=== PATIENT | female | born 1975 | race Caucasian/White ===

== ENCOUNTER → 2020-11-13 17:59 | Outpatient (CLI) | payer OTHER, SELFPAY ==
--- NOTE | ~2020-11-13 | XR_ITS ---
XR foot RT min 3V 11/13/2020 19:11 Indication: Right foot pain Procedure: 4 views right foot Comparison: No prior studies for comparison. Findings: There is moderate osteoarthritis of the first MTP joint with surgical changes consistent wi th hallux repair. Lisfranc joint intact. No acute fracture or traumatic malalignment. No focal soft t issue abnormality. No foreign bodies. Impression: 1: No acute bone or joint abnormality. Reviewed, dictated and finalized at location A. Impression: 1: No acute bone or joint abnormality.
== END ==
PROVIDERS: Visit Provider Nurse Practitioner
DX: M79.671 Pain in right foot (principal)
CPT/HCPCS: 73630

== ENCOUNTER 2022-06-26 01:05 | Day surgery (SDC) | payer BC, SELFPAY ==
[2022-06-12 08:58] VITALS: BMI 37.4
--- NOTE | 2022-06-26 08:37 | WPDANESEPPF ---
Anes - Initial Pre Proc Eval Procedure: Operation Date: 06/26/22 10:30 Proposed Procedures p Esophagogastroduodenoscopy & Screening Colonoscopy - Aleksandr Cox MD Date/Time: 06/26/22 08:37 Surgeon: Aleksandr Cox MD Pre Op Diagnosis: GERD, dysphagia; neoplasm screening Patient Data Age: 46 Gender: F Height: 1.57 m Weight: 92.9 kg Allergies Allergy/AdvReac Type Severity Reaction Status Date / Time No Known Allergies Allergy Unverified 06/26/22 09:19 Home Medications Medication Instructions Recorded Confirmed Type estradiol 1 mg tablet 1 mg PO DAILY 12/21/19 06/12/22 History progesterone micronized 100 mg 100 mg PO QAM 12/21/19 06/12/22 History capsule cetirizine 10 mg capsule (Zyrtec) 10 mg PO DAILY PRN Allergy Symptoms 11/13/20 06/12/22 History sucralfate 1 gram tablet (Carafate) 1 g PO TID #90 tabs 04/30/22 06/12/22 Rx rabeprazole 20 mg tablet,delayed 20 mg PO DAILY #30 tabs 05/08/22 06/12/22 Rx release (AcipHex) buspirone 10 mg tablet 10 mg PO BID #180 tabs 06/10/22 06/12/22 Rx fluoxetine 40 mg capsule 40 mg PO DAILY #90 caps 06/10/22 06/12/22 Rx Patient hx anesthesia problems: none Family hx anesthesia problems: none Results Review: All pre-operative results and documents have been reviewed as part of the pre-operative evaluation. [facility] Past Medical History Medical History (Updated 05/08/22 @ 09:13 by Maryann Mendoza, ROBEL) Allergies (~1999) Anxiety (~1999) Asthma (~1999) Atypical chest pain Colon cancer screening GERD (gastroesophageal reflux disease) (~2014) History of vaginal delivery (~2003) Hyperlipidemia Left upper quadrant pain Obesity (BMI 30-39.9) Obesity (BMI 30.0-34.9) Surgical History Surgical History History of bunionectomy (~2016) removal of neuroma, 2017 Family History Family History Father Gastric bleeding Peripheral artery disease with complications leading to left above knee amputation (2013) Malignant neoplasm of prostate Grandparent History of bleeding ulcers Social History Social History Social History: Pt states that she drinks 2 cups of coffee daily. 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[employer] Gender identity (if verbalized by the patient): Female Spiritual care concerns: No Agree to blood products: Yes Anes - Eval Final PreProcedure Day of Procedure 06/26/22 08:37 Patient weight: obese Heart: regular rate and rhythm Lungs: clear to auscultation and normal air movement Airway: Mallampati scale class II Neurological: alert and oriented Last oral intake: >/= 8 hours ASA classification: III Emergent: no Anesthetic plan: proceed Anesthesia type and monitoring: general GIVS Results Review: All pre-operative results and documents have been reviewed as part of the pre-operative evaluation. Informed Consent: The patient's anesthetic plan and its attendant risks and benefits were discussed with the patient/family/POA. Questions were solicited and answers provided to the satisfaction of the patient/family/POA.
[2022-06-26 09:21] VITALS: BP 130/77; PULSE 67; RESP 18; TEMP 36.2; O2SAT 98; BMI 37.4
[2022-06-26] MEDS: LACTATED RINGERS 1,000 ML 150 ML IV CONT (09:26)
--- NOTE | 2022-06-26 10:17 | PM.HPGS ---
History of Present Illness History of Present Illness Consent: Risks, benefits, and alternatives have been discussed and questions answered. Patient agrees to proceed with procedure. Chief complaint: GERD, dysphagia; neoplasm screening Narrative: Vania Isaacs is a 46 year old female with gerd and intermittent pain in luq, better with rabeprazole. Never had scopes. Review of Systems Constitutional: Constitutional: Denies headache(s) and Denies weakness Eyes: Eyes: Denies blurry vision ENT: Reports Normal hearing present, Denies headache(s) and Denies neck pain Cardiovascular: Cardiovascular: Denies chest pain and Denies dyspnea Respiratory: Respiratory: Denies dyspnea Gastrointestinal: Gastrointestinal: Reports no additional gastrointestinal complaints Genitourinary: Genitourinary: Denies dysuria Musculoskeletal: Musculoskeletal: Denies neck pain Integumentary/Breasts: Skin/Breast: Denies dry skin Neurologic: Reports Normal hearing present, Denies headache(s) and Denies weakness Psychiatric: Psychiatric: Denies anxiety Endocrine: Endocrine: Denies change in body appearance Hematologic/Lymphatic: Hematologic/Lymphatic: Denies easy bleeding Allergic/Immunologic: Allergic/Immunologic: Denies urticaria [facility] Past Medical History Medical History (Updated 05/08/22 @ 09:13 by Maryann Mendoza, ROBEL) Allergies (~1999) Anxiety (~1999) Asthma (~1999) Atypical chest pain Colon cancer screening GERD (gastroesophageal reflux disease) (~2014) History of vaginal delivery (~2003) Hyperlipidemia Left upper quadrant pain Obesity (BMI 30-39.9) Obesity (BMI 30.0-34.9) Surgical History Surgical History History of bunionectomy (~2016) removal of neuroma, 2017 Family History Family History Father Gastric bleeding Peripheral artery disease with complications leading to left above knee amputation (2013) Malignant neoplasm of prostate Grandparent History of bleeding ulcers Social History Social History Social History: Pt states that she drinks 2 cups of coffee daily. 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[employer] Gender identity (if verbalized by the patient): Female Spiritual care concerns: No Agree to blood products: Yes Meds Home Medications and Allergies Home Medications Medication Instructions Recorded Confirmed Type estradiol 1 mg tablet 1 mg PO DAILY 12/21/19 06/12/22 History progesterone micronized 100 mg 100 mg PO QAM 12/21/19 06/12/22 History capsule cetirizine 10 mg capsule (Zyrtec) 10 mg PO DAILY PRN Allergy Symptoms 11/13/20 06/12/22 History sucralfate 1 gram tablet (Carafate) 1 g PO TID #90 tabs 04/30/22 06/12/22 Rx rabeprazole 20 mg tablet,delayed 20 mg PO DAILY #30 tabs 05/08/22 06/12/22 Rx release (AcipHex) buspirone 10 mg tablet 10 mg PO BID #180 tabs 06/10/22 06/12/22 Rx fluoxetine 40 mg capsule 40 mg PO DAILY #90 caps 06/10/22 06/12/22 Rx Allergies Allergy/AdvReac Type Severity Reaction Status Date / Time No Known Allergies Allergy Unverified 06/26/22 09:19 Vital Signs Vital Signs - 24 hr 06/26/22 09:21 Temperature 97.2 F L Pulse Rate 67 Respiratory Rate 18 Blood Pressure 130/77 Pulse Oximetry 98 Oxygen Delivery Room Air Exam Const: General: comfortable and no acute distress HENMT: Face/Nose/Sinus: Normal nares present Eyes: General: appearance normal, both eyes and all related structures Neck: Neck: no
--- NOTE | 2022-06-26 10:34 | SUR.OPER ---
EGD: [id number] COLON: [id number]
[2022-06-26 10:50] VITALS: BP 119/73; PULSE 70; RESP 22; O2SAT 99
[2022-06-26 11:00] VITALS: BP 128/83; PULSE 67; RESP 17; O2SAT 100
[2022-06-26 11:10] VITALS: BP 143/77; PULSE 72; RESP 20; O2SAT 99
== END 2022-06-26 11:19 | disposition home or self-care (01) ==
PROVIDERS: PCP Nurse Practitioner; Visit Provider Internal Medicine Gastroenterology
PROC: 0DJ08ZZ Inspection of Upper Intestinal Tract, Via Natural or Artificial Opening Endoscopic (ICD-10-PCS; CPT 43235; principal; 2022-06-26 10:30)
DX: Z12.11 Encounter for screening for malignant neoplasm of colon (principal); D12.3 Benign neoplasm of transverse colon; K64.8 Other hemorrhoids; K31.7 Polyp of stomach and duodenum; K21.9 Gastro-esophageal reflux disease without esophagitis; R10.12 Left upper quadrant pain; F41.9 Anxiety disorder, unspecified; E66.9 Obesity, unspecified; Z68.37 Body mass index [BMI] 37.0-37.9, adult
CPT/HCPCS: 45385; 43239; 88305; J2704; J3010; J7120

== ENCOUNTER 2022-09-02 16:34 | Outpatient (CLI) | payer BC, SELFPAY ==
--- NOTE | ~2022-09-02 | US_ITS ---
Pelvic ultrasound. Clinical History: Postmenopausal bleeding Technique: Realtime transabdominal and transvaginal scanning of the pelvis was performed. Color flow Doppler and Doppler spectral analysis were performed. Findings: The uterus is anteverted, and measures 8.4 x 4.5 x 5.3 cm. The endometrial stripe has a th ickness of 6 mm. No focal mass is identified. The right ovary measures 2.5 x 1.4 x 2.7 cm. No significant right ovarian or adnexal mass is seen. The left ovary measures 3.4 x 1.1 x 2.4 cm. No significant left ovarian or adnexal mass is seen. Vascular flow present in both ovaries on Doppler spectral analysis. There is no evidence of free fluid in the cul de sac. Impression: Endometrial stripe measures 6 mm, upper limits of normal to borderline thickened. Findings are somewh at equivocal. Consider additional workup for endometrial hyperplasia or endometrial neoplasm as indic ated. Reviewed, dictated and finalized at location . FITI CLEANER Impression: Endometrial stripe measures 6 mm, upper limits of normal to borderline thickene d. Findings are somewhat equivocal. Consider additional workup for endometrial hyperplasia or endometrial neoplasm as indicated.
== END 2022-09-02 16:35 | disposition home or self-care (01) ==
PROVIDERS: PCP Nurse Practitioner; Visit Provider Obstetrics & Gynecology
DX: N95.0 Postmenopausal bleeding (principal)
CPT/HCPCS: 76830; 76856

== ENCOUNTER 2022-09-17 09:08 | Emergency (ER) | payer BC, SELFPAY ==
--- NOTE | 2022-09-17 09:10 | ED.URI ---
HPI - URI/Sore Throat General Chief Complaint: Upper Respiratory Infection Stated Complaint: Cough,Congestion,Rt Ear Irritation Time Seen by Provider: 09/17/22 09:09 Source: patient Mode of arrival: ambulatory Limitations: no limitations History of Present Illness HPI Narrative: Sandy is a 47-year-old female patient presenting to the clinic today with complaints of cough, congestion, and right ear pain since . She reports she has been treated with antibiotics, fluticasone/salmeterol inhaler, and a Medrol Dosepak. Reports that she feels as though her symptoms are getting worse. She has also been taking some Mucinex. She is bringing up very little phlegm and it has been clear. She denies any fever or chills. She reports she does have some shortness of breath with coughing. States that her sinus pressure has improved. MD elicited complaint: cough, nasal congestion and other (Right ear pain) Related Data Home Medications Medication Instructions Recorded Confirmed progesterone micronized 100 mg 100 mg PO QAM 12/21/19 09/17/22 capsule cetirizine 10 mg capsule (Zyrtec) 10 mg PO DAILY PRN Allergy Symptoms 11/13/20 09/17/22 Allergies Allergy/AdvReac Type Severity Reaction Status Date / Time No Known Allergies Allergy Verified 09/17/22 09:17 Review of Systems Review of Systems: Pertinent positives per HPI. Patient denies any fever, chills, rash, headache, visual changes, dizziness, shortness of breath, chest pain, palpitations, nausea, vomiting, diarrhea, constipation, abdominal pain, or any urinary issues. [facility] Past Medical History Medical History Allergies (~1999) Anxiety (~1999) Asthma (~1999) Atypical chest pain Colon cancer screening GERD (gastroesophageal reflux disease) (~2014) History of vaginal delivery (~2003) Hyperlipidemia Left upper quadrant pain Obesity (BMI 30-39.9) Obesity (BMI 30.0-34.9) Surgical History Surgical History History of bunionectomy (~2016) removal of neuroma, 2017 Family History Family History Father Gastric bleeding Peripheral artery disease with complications leading to left above knee amputation (2013) Malignant neoplasm of prostate Grandparent History of bleeding ulcers Social History Social History Social History: Pt states that she drinks 2 cups of coffee daily. Smoking status: Never smoker Second hand tobacco smoke exposure: No Alcohol intake: current Drinks per week: 2 Alcohol use details: drinks wine 1/occ Substance use: never Substance use type: does not use Lack of Transportation: No Lack of Food: Never True Current Housing: I Have Housing Concerned About Future Housing: No Difficulty Paying Gas/Electric Bills: No Difficulty Paying for Meds: No Currently Unemployed: No Education: Master's Degree or Higher Difficulty w/ Childcare or Family Care: No Living arrangements: with family Additional living arrangements comments: since 2011; 2013 Occupation/Education: occupation 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 There is no relevant family history pertinent to the patient complaint. Exam Narrative: General: Well-developed, well nourished, in no apparent distress Head: Normocephalic, atraumatic Eyes: Pupils equally round and reactive to light bilaterally, EOM intact, sclera and conjunctive clear, no discharge, lids normal Ears: Left tMs intact and nitish
[2022-09-17 09:17] VITALS: BP 148/76; PULSE 86; RESP 18; TEMP 36.4; O2SAT 97
[2022-09-17 09:30] VITALS: O2SAT 97
[2022-09-17] MEDS: IPRATROPIUM BR 0.02% INH SOLN 0.5 MG/2.5 ML VIAL INHALATION (09:30)
[2022-09-17] MEDS: ALBUTEROL SULFATE NEB 2.5 MG/3 ML INH INHALATION (09:31)
[2022-09-17 09:50] VITALS: PULSE 84; O2SAT 98
== END 2022-09-17 09:52 | disposition home or self-care (01) ==
PROVIDERS: Emergency Provider Nurse Practitioner Family; PCP Nurse Practitioner
DX: J40 Bronchitis, not specified as acute or chronic (principal); H65.04 Acute serous otitis media, recurrent, right ear; H69.81 Other specified disorders of Eustachian tube, right ear; J45.909 Unspecified asthma, uncomplicated; K21.9 Gastro-esophageal reflux disease without esophagitis; E78.5 Hyperlipidemia, unspecified; E66.9 Obesity, unspecified; Z68.39 Body mass index [BMI] 39.0-39.9, adult
CPT/HCPCS: 94640; 99213; G0463

== ENCOUNTER → 2022-09-23 13:35 | Outpatient (CLI) | payer BC, SELFPAY ==
--- NOTE | ~2022-09-23 | XR_ITS ---
Clinical Indication: Cough PA and lateral views of the chest: Comparison: None Findings: The lungs are clear, without evidence of focal consolidation or pleural effusion. Cardiome diastinal silhouette is within normal limits. Bones and soft tissues are unremarkable. Impression: Normal chest. Reviewed, dictated and finalized at [facility]. VISUAL DESIGNER Impression: Normal chest.
== END ==
PROVIDERS: PCP Nurse Practitioner; Visit Provider Nurse Practitioner
DX: R05.9 Cough, unspecified (principal)
CPT/HCPCS: 71046

== ENCOUNTER 2022-10-08 14:22 | Outpatient (CLI) | payer BC, SELFPAY ==
--- NOTE | 2022-10-08 17:47 | WPDPFTINT ---
PFT Procedure Performed PFT Procedure Performed Spirometry with Pre/Post Bronchodilator Plethysmography (Lung Vol) Diffusing Cap (DLCO) Flow Vol Loop PFT Interpretation This is a pulmonary function test with pre and post-bronchodilator spirometry, plethysmography and diffusing capacity. The test was performed and results interpreted in accordance with the 2019 and 2005 ATS/ERS Task Force guidelines respectively using the Global Lung Function Initiative-2012 reference equations. Patient demonstrated good effort and cooperation. Reproducibility criteria were met. The quality of the pre bronchodilator spirometry maneuver was Grade B and post bronchodilator spirometry maneuver was Grade A. Of note the patient had a nonproductive cough throughout the entire test. Findings: Spirometry:? The expiratory flow tracing demonstrates a mid expiratory plateau in airflow creating a mild convex inflection referred to as the knee pattern in 2 of 2 pre bronchodilator efforts and is more pronounced in 3 of 3 post bronchodilator efforts. The contour the inspiratory flow tracing was truncated in all efforts.? The pre bronchodilator FVC is 3.70 L, 113% predicted. The pre bronchodilator FEV1 is 2.80 L, 106% predicted. The pre bronchodilator FEV1: FVC ratio is 76%. The post bronchodilator FVC is 3.51 L, representing a 5% decrease. The post bronchodilator FEV1 is 2.83 L, representing a 1% increase. The post bronchodilator FEV1: FVC ratio is 81%. Plethysmography: The total lung capacity is 4.96 L, 105% predicted. The functional residual capacity is 1.74 L, 66% predicted. The residual volume is 0.95 L, 59% predicted. Diffusing capacity: The diffusing capacity unadjusted for hemoglobin and carboxyhemoglobin is 21.1, 95% predicted. The diffusing capacity adjusted for alveolar volume is 4.32, 91% predicted. Impression: The expiratory flow tracing demonstrates a reproducible mid expiratory plateau in airflow creating a convex inflection referred to as the knee pattern and is reproducible in all efforts and is more pronounced in the post bronchodilator efforts.? This pattern can be a normal variant or pathologic and has been attributed to a choke point section of the bronchial tree.? The normal variant is more common in younger female patients, decreases with age and is more pronounced in the post bronchodilator efforts.? The pattern has also been described with kyphosis, kyphoscoliosis, central obstructing masses, and post lung transplantation. Clinical correlation is recommended. Otherwise, the spirometry is normal without evidence of an obstructive abnormality. ? The lung volumes are normal.? The diffusing capacity is normal. There are no prior studies for comparison
== END 2022-10-08 14:23 | disposition home or self-care (01) ==
LOC: ANHPFT 14:23
PROVIDERS: PCP Nurse Practitioner; Visit Provider Nurse Practitioner
DX: R06.02 Shortness of breath (principal); R06.2 Wheezing; R94.2 Abnormal results of pulmonary function studies
CPT/HCPCS: 94060; 94726; 94729

== ENCOUNTER 2022-12-04 09:24 | Outpatient (CLI) | payer BC, SELFPAY ==
--- NOTE | ~2022-12-04 | MM_ITS ---
EXAMINATION: MM screening bebeto BI w [facility] HISTORY: Screening mammogram TECHNIQUE: Craniocaudal and mediolateral oblique 3-D tomosynthesis images were obtained and synthetic 2-D images were generated. CAD analysis was submitted and interpreted. COMPARISON: No prior mammogram is available for comparison at this institution. BREAST PARENCHYMAL COMPOSITION: There are scattered areas of fibroglandular density. FINDINGS: RIGHT BREAST: No suspicious mass, calcification, or architectural distortion are identified to sugges t malignancy. LEFT BREAST: There is a possible mass in the anterior third of the slightly upper breast best appreci ated 5 cm from the nipple on the mediolateral oblique view. IMPRESSION: 1. Possible left breast mass. 2. Additional mammographic views and possible breast ultrasound are recommended. BI-RADS Category 0: Incomplete: Needs additional imaging evaluation. Reviewed, dictated and finalized at location A. IMPRESSION: 1. Possible left breast mass. 2. Additional mammographic views and possible breast ultrasound are recommended . BI-RADS Category 0: Incomplete: Needs additional imaging evaluation.
== END 2022-12-04 09:25 | disposition home or self-care (01) ==
LOC: ANHIMG 09:26
PROVIDERS: PCP Nurse Practitioner; Visit Provider Obstetrics & Gynecology
DX: Z12.31 Encounter for screening mammogram for malignant neoplasm of breast (principal); R92.8 Other abnormal and inconclusive findings on diagnostic imaging of breast
CPT/HCPCS: 77063; 77067

== ENCOUNTER 2023-05-13 12:56 | Outpatient (CLI) | payer BC, SELFPAY ==
--- NOTE | 2023-05-13 14:00 | NEURO_ITS ---
Impression: # Complains of nocturnal paresthesia and pain. # Bilateral Carpal Tunnel Syndrome, left more than right. # No ulnar neuropathy. # Normal needle/EMG. Nerve Conduction Studies Anti Sensory Summary Table Stim Site NR Peak (ms) P-T Amp (?V) Site1 Site2 Delta-P (ms) Dist (cm) Jorje (m/s) Left Median Anti Sensory (2-3nd Digit) Wrist 2.9 99.7 Wrist 2-3nd Digit 2.9 14.0 48 Wrist 2.9 102.2 Wrist 2-3nd Digit 2.9 14.0 48 Right Median Anti Sensory (2-3nd Digit) Wrist 3.1 88.5 Wrist 2-3nd Digit 3.1 14.0 45 Wrist 3.1 75.2 Wrist 2-3nd Digit 3.1 14.0 45 Left Radial Anti Sensory (Base 1st Digit) Wrist 2.0 40.1 Wrist Base 1st Digit 2.0 0.0 Right Radial Anti Sensory (Base 1st Digit) Wrist 1.9 31.4 Wrist Base 1st Digit 1.9 0.0 Left Ulnar Anti Sensory (5th Digit) Wrist 2.3 49.2 Wrist 5th Digit 2.3 14.0 61 Right Ulnar Anti Sensory (5th Digit) Wrist 2.2 54.4 Wrist 5th Digit 2.2 14.0 64 Motor Summary Table Stim Site NR Onset (ms) O-P Amp (mV) Site1 Site2 Delta-0 (ms) Dist (cm) Jorje (m/s) Left Median Motor (Abd Poll Brev) Wrist 4.1 2.4 Elbow Wrist 4.6 28.0 61 Elbow 8.7 3.4 Right Median Motor (Abd Poll Brev) Wrist 3.7 8.1 Elbow Wrist 5.0 29.0 58 Elbow 8.7 3.8 Left Ulnar Motor (Abd Dig Minimi) Wrist 2.0 5.6 A Elbow Wrist 5.3 30.0 57 A Elbow 7.3 5.6 Right Ulnar Motor (Abd Dig Minimi) Wrist 2.2 9.8 A Elbow Wrist 5.1 29.0 57 A Elbow 7.3 7.7 F Wave Studies NR F-Lat (ms) L-R F-Lat (ms) Left Median (Mrkrs) (Abd Poll Brev) 29.53 1.11 Right Median (Mrkrs) (Abd Poll Brev) 28.42 1.11 Left Ulnar (Mrkrs) (Abd Dig Min) 26.99 0.98 Right Ulnar (Mrkrs) (Abd Dig Min) 27.97 0.98 EMG Side Muscle Nerve Root Ins Act Fibs Amp Dur Recrt Comment Right 1stDorInt Ulnar C8-T1 Nml Nml Nml Nml Nml Right Ext Indicis Radial (Post Int) C7-8 Nml Nml Nml Nml Nml Right Ext Digitorum Radial (Post Int) C7-8 Nml Nml Nml Nml Nml Right BrachioRad Radial C5-6 Nml Nml Nml Nml Nml Right PronatorTeres Median C6-7 Nml Nml Nml Nml Nml Right Abd Poll Brev Median C8-T1 Nml Nml Nml Nml Nml Left 1stDorInt Ulnar C8-T1 Nml Nml Nml Nml Nml Left Ext Indicis Radial (Post Int) C7-8 Nml Nml Nml Nml Nml Left Ext Digitorum Radial (Post Int) C7-8 Nml Nml Nml Nml Nml Left BrachioRad Radial C5-6 Nml Nml Nml Nml Nml Left PronatorTeres Median C6-7 Nml Nml Nml Nml Nml Left Abd Poll Brev Median C8-T1 Nml Nml Nml Nml Nml MTDD
== END 2023-05-13 12:57 | disposition home or self-care (01) ==
LOC: ANHNEURO 12:57
PROVIDERS: PCP Family Medicine; Visit Provider Nurse Practitioner Family
DX: R20.2 Paresthesia of skin (principal); G56.03 Carpal tunnel syndrome, bilateral upper limbs
CPT/HCPCS: 95886; 95911

== ENCOUNTER 2024-01-16 00:07 | Day surgery (SDC) | payer BC, SELFPAY ==
[2024-01-14 15:34] VITALS: BMI 36.8
--- NOTE | 2024-01-14 15:39 | PC.NURSE ---
Report to the Outpatient Waiting Room, entrance under the green pavilion located off [facility], at time _0600_ on date _[id number]_. Planned Procedure Time: _0730_. Time changes happen often and if your time is changed the preop area will call you the afternoon before. - You and your visitor will be asked to self-screen and do not enter if you have any COVID symptoms. - A mask is optional within the hospital at this time. Patients may have clear liquids (water, carbonated beverages, clear teas, apple juice) until 3 hours prior to surgery with a maximum of 20 ounces. - No food from midnight until time of surgery Take the following medications with a SIP of water the morning of surgery: ___Fluoxetine DO NOT STOP ANY OF YOUR OTHER PRESCRIPTION MEDICATIONS PRIOR TO SURGERY ?EXCEPT THE FOLLOWING Medications to discontinue per physician None Date to take last dose Please no make-up, nail tajik, hairspray, perfume, deodorant, or body powder the day of surgery. No jewelry (including any body piercings) or valuables the day of surgery, leave them at home. Please take a shower or bath the night before, or the morning of, surgery with an antibacterial soap. Wear comfortable, loose fitting clothing. - Jewelry must be removed prior to entering the operating room. Rings and piercings that are not removed may be cut off. - The hospital will not accept responsibility for valuables. - Please leave all valuables, including medications, at home the day of surgery. If you are going home after surgery, a licensed distribution driver must drive you home. - NO public transportation without another adult if you receive anesthesia. - We recommend that an adult stay with you for 24 hours following discharge. - We also recommend that you do not drive, make important decision, drink alcoholic beverages, or take any drugs that were not prescribed by your health care provider for at least 24 hours after your discharge time. Follow any additional instructions given to you from your surgeon. If you or anyone in your household have experienced Covid symptoms in the past week, please notify your surgeon or the nurse liaison at the phone number below for possible testing. Telephone instructions given to __Vania__and asked if any additional questions and then verbalized understanding. Patient advised to call surgeon office or pre surgery nurse liaison [phone] if any additional questions.
--- NOTE | 2024-01-15 14:19 | WPDANESEPPF ---
Anes - Initial Pre Proc Eval Procedure: Operation Date: 01/16/24 10:30 Proposed Procedures p Right Carpal Tunnel Release - Aldo Graf MD Date/Time: 01/15/24 14:19 Surgeon: Aldo Graf MD Pre Op Diagnosis: Right Carpal Tunnel syndrome Patient Data Age: 48 Gender: F Height: 1.57 m Weight: 91.4 kg Allergies Allergy/AdvReac Type Severity Reaction Status Date / Time No Known Allergies Allergy Verified 01/16/24 08:52 Home Medications Medication Instructions Recorded Confirmed Type cetirizine 10 mg capsule (Zyrtec) 10 mg PO DAILY Allergy Symptoms 11/13/20 01/14/24 History rabeprazole 20 mg tablet,delayed 20 mg PO DAILY #90 tabs 06/11/23 01/14/24 Rx release montelukast 10 mg tablet 10 mg PO DAILY #90 tabs 09/26/23 01/14/24 Rx fluoxetine 20 mg capsule (Prozac) 20 mg PO DAILY #90 caps 12/01/23 01/14/24 Rx albuterol sulfate 90 mcg/actuation 2 puff inhalation Q4-6H PRN 12/26/23 01/14/24 Rx aerosol inhaler shortness of breath or wheezing 30 days #8.5 grams estradiol 1 mg tablet 1 mg PO DAILY #90 tabs 12/31/23 01/14/24 Rx progesterone micronized 100 mg 100 mg PO DAILY #90 caps 12/31/23 01/14/24 Rx capsule chlorhexidine gluconate 4 % 1 applic topical DAILY #237 mL 01/09/24 Rx topical liquid (Hibiclens) hydrocodone 5 mg-acetaminophen 325 1 tablet PO Q12H PRN pain #30 tabs 01/16/24 Rx mg tablet Patient hx anesthesia problems: none Family hx anesthesia problems: none Results Review: All pre-operative results and documents have been reviewed as part of the pre-operative evaluation. [facility]LY [facility] Past Medical History Medical History Abnormal vaginal bleeding in postmenopausal patient Allergies (~1999) Anxiety (~1999) Asthma Bilateral carpal tunnel syndrome Chondromalacia, left knee Chondromalacia, right knee GERD (gastroesophageal reflux disease) (~2014) History of vaginal delivery (~2003) Hyperlipidemia Knee pain Left knee DJD Obesity (BMI 30.0-34.9) Otogenic otalgia of right ear Paresthesia of hand, bilateral Patella-femoral syndrome Right knee DJD Upper respiratory infection Surgical History Surgical History History of bunionectomy (~2017) removal of neuroma, 2017 Family History Family History Father Gastric bleeding Peripheral artery disease with complications leading to left above knee amputation (2013) Malignant neoplasm of prostate Grandparent History of bleeding ulcers Social History Social History Social History: Pt states that she drinks 2 cups of coffee daily. Smoking status: Never smoker Second hand tobacco smoke exposure: No Alcohol intake: current Drinks per week: 1 Alcohol use details: drinks wine 1/occ Substance use: never Substance use type: does not use Lack of Transportation: No Lack of Food: Never True Current Housing: I Have Housing Concerned About Future Housing: No Difficulty Paying Gas/Electric Bills: No Difficulty Paying for Meds: No Currently Unemployed: No Education: Master's Degree or Higher Difficulty w/ Childcare or Family Care: No Living arrangements: with family Additional living arrangements comments: since 2011; 2013 Occupation/Education: occupation 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
--- NOTE | 2024-01-16 07:09 | WPDHPUPDATE1 ---
History and Physical Update Update Date/Time: 01/16/24 07:09 History and Physical has been reviewed, including an updated exam of the patient. There are NO changes in the patient's condition. Risks, benefits, and alternatives have been discussed and questions answered. Patient agrees to proceed with procedure.
[2024-01-16 08:40] VITALS: BP 110/69; PULSE 72; RESP 14; TEMP 36.4; O2SAT 97
[2024-01-16] MEDS: ACETAMINOPHEN 500 MG TABLET 1000 MG PO (08:40)
[2024-01-16] MEDS: LACTATED RINGERS 1,000 ML 30 ML IV CONT ×2 (08:40→10:37)
[2024-01-16] MEDS: CELECOXIB 200 MG CAPSULE PO (08:40)
[2024-01-16] MEDS: ceFAZolin 2 GM/D5W 50 ML 2 GM/50 ML BAG IVPB (09:51)
[2024-01-16] MEDS: BUPivacaine HCL 0.5% PF 30 ML VIAL 20 ML INFILTRATE (10:04)
[2024-01-16 10:37] VITALS: BP 101/53; PULSE 65; RESP 15; O2SAT 95
--- NOTE | 2024-01-16 10:58 | W.PM.PROC2 ---
Procedure Note - Detailed Date of Procedure 01/16/24 Pre-op Diagnosis Right Carpal Tunnel syndrome Post-op Diagnosis Same Procedure Performed RIGHT CTR Surgeon Aldo Graf MD Anesthesia General Description of Procedure THE RIGHT UPPER EXTREMITY WAS PREPPED AND DRAPED IN THE STERILE FASHION. THE CARPAL TUNNEL WAS MARKED FROM THE FLEXED RING FINGER. THE TOURNIQUET WAS INFLATED. THE INCISION WAS MADE AT THE MID PALM DOWN THROUGH THE SUBCUTANEOUS TISSUES. THE PALMAR FASCIA WAS IDENTIFIED. AN INCISION WAS MADE THROUGH THE PALMAR FASCIA UNTIL THE CARPAL TUNNEL WAS ENTERED. A MOSQUITO HEMOSTAT WAS USED TO PROTECT THE MEDIAN NERVE WHILE THE INCISION TO THE PALMAR FASCIA WAS COMPLETE PROXIMALLY AND DISTALLY TO THE CARDINAL LINE. NEXT, THE TRANSVERSE CARPAL LIGAMENT WAS IDENTIFIED. A FREER ELEVATOR WAS USED TO SEPARATE THE NERVE FROM THE LIGAMENT. A METZENBAUM SCISSORS WAS THEN USED TO INCISE THE TRANSVERSE CARPAL LIGAMENT UNTIL THERE WAS A COMPLETE RELEASE OF THE CARPAL TUNNEL. THE MEDIAN NERVE WAS INTACT. THE TOURNIQUET WAS DEFLATED. THE BLEEDERS WERE CAUTERIZED. THE WOUND WAS WASHED. THE SKIN WAS APPROXIMATED WITH 4-0 NYLON SUTURE. STERILE DRESSING WAS APPLIED. PATIENT WAS EXTUBATED AND SENT TO THE RECOVERY ROOM. Estimated Blood Loss 5 Complications No immediate complications Condition Stable Disposition PACU
[2024-01-16 11:05] VITALS: BP 115/67; PULSE 55; RESP 18; O2SAT 95
[2024-01-16] MEDS: oxyCODONE HCL (*CRX) 5 MG TAB IR PO (11:22)
[2024-01-16 11:35] VITALS: BP 137/63; PULSE 50; RESP 16
[2024-01-16 11:50] VITALS: BP 134/84; PULSE 50; RESP 16
== END 2024-01-16 12:00 | disposition home or self-care (01) ==
PROVIDERS: PCP Family Medicine; Visit Provider Orthopaedic Surgery
PROC: (CPT 64721; principal; 2024-01-16 10:30)
DX: G56.01 Carpal tunnel syndrome, right upper limb (principal); F41.9 Anxiety disorder, unspecified; J45.909 Unspecified asthma, uncomplicated; K21.9 Gastro-esophageal reflux disease without esophagitis; E78.5 Hyperlipidemia, unspecified; M17.0 Bilateral primary osteoarthritis of knee; E66.9 Obesity, unspecified; Z68.36 Body mass index [BMI] 36.0-36.9, adult; Z79.51 Long term (current) use of inhaled steroids; Z79.891 Long term (current) use of opiate analgesic; Z98.890 Other specified postprocedural states; Z80.42 Family history of malignant neoplasm of prostate; Z82.49 Family history of ischemic heart disease and other diseases of the circulatory system
CPT/HCPCS: 64721; A9270; J0690; J2250; J2704; J3010; J7120

== ENCOUNTER 2024-01-27 00:32 | Day surgery (SDC) | payer BC, SELFPAY ==
[2024-01-20 11:00] VITALS: BMI 36.6
--- NOTE | 2024-01-20 11:04 | PC.NURSE ---
Report to the Outpatient Waiting Room, entrance under the green pavilion located off [facility], at time _1000_ on date _[id number]_. Planned Procedure Time: _1200_. Time changes happen often and if your time is changed the preop area will call you the afternoon before. - You and your visitor will be asked to self-screen and do not enter if you have any COVID symptoms. - A mask is optional within the hospital at this time. Patients may have clear liquids (water, carbonated beverages, clear teas, apple juice) until 3 hours prior to surgery with a maximum of 20 ounces. - No food from midnight until time of surgery Take the following medications with a SIP of water the morning of surgery: ___Fluoxetine DO NOT STOP ANY OF YOUR OTHER PRESCRIPTION MEDICATIONS PRIOR TO SURGERY ?EXCEPT THE FOLLOWING Medications to discontinue per physician None Date to take last dose Please no make-up, nail sinhala, hairspray, perfume, deodorant, or body powder the day of surgery. No jewelry (including any body piercings) or valuables the day of surgery, leave them at home. Please take a shower or bath the night before, or the morning of, surgery with an antibacterial soap. Wear comfortable, loose fitting clothing. - Jewelry must be removed prior to entering the operating room. Rings and piercings that are not removed may be cut off. - The hospital will not accept responsibility for valuables. - Please leave all valuables, including medications, at home the day of surgery. If you are going home after surgery, a licensed stock car driver must drive you home. - NO public transportation without another adult if you receive anesthesia. - We recommend that an adult stay with you for 24 hours following discharge. - We also recommend that you do not drive, make important decision, drink alcoholic beverages, or take any drugs that were not prescribed by your health care provider for at least 24 hours after your discharge time. Follow any additional instructions given to you from your surgeon. If you or anyone in your household have experienced Covid symptoms in the past week, please notify your surgeon or the nurse liaison at the phone number below for possible testing. Telephone instructions given to _Kelly___and asked if any additional questions and then verbalized understanding. Patient advised to call surgeon office or pre surgery nurse liaison [phone] if any additional questions.
[2024-01-27] VITALS (9 sets, daily range): BP systolic 133–175; BP diastolic 66–81; PULSE 50–72; RESP 10–18; TEMP 36.3–36.7; O2SAT 96–100
--- NOTE | 2024-01-27 10:09 | WPDHPUPDATE1 ---
History and Physical Update Update Date/Time: 01/27/24 10:09 History and Physical has been reviewed, including an updated exam of the patient. There are NO changes in the patient's condition. Risks, benefits, and alternatives have been discussed and questions answered. Patient agrees to proceed with procedure.
[2024-01-27] MEDS: ACETAMINOPHEN 500 MG TABLET 1000 MG PO (10:25)
[2024-01-27] MEDS: CELECOXIB 200 MG CAPSULE PO (10:25)
--- NOTE | 2024-01-27 11:28 | WPDANESEPPF ---
Anes - Initial Pre Proc Eval Procedure: Operation Date: 01/27/24 12:00 Proposed Procedures p Left Carpal Tunnel Release - Aldo Graf MD Date/Time: 01/27/24 11:28 Surgeon: Aldo Graf MD Pre Op Diagnosis: Left Carpal Tunnel syndrome Patient Data Age: 48 Gender: F Height: 1.57 m Weight: 90.5 kg Last Vital Signs Temp 98.1 F 01/27/24 10:04 Pulse 72 01/27/24 10:04 Resp 18 01/27/24 10:04 BP 133/66 01/27/24 10:04 Pulse Ox 98 01/27/24 10:04 O2 Del Method Room Air 01/27/24 10:04 Allergies Allergy/AdvReac Type Severity Reaction Status Date / Time No Known Allergies Allergy Verified 01/27/24 09:57 Home Medications Medication Instructions Recorded Confirmed Type cetirizine 10 mg capsule (Zyrtec) 10 mg PO DAILY Allergy Symptoms 11/13/20 01/27/24 History rabeprazole 20 mg tablet,delayed 20 mg PO DAILY #90 tabs 06/11/23 01/27/24 Rx release montelukast 10 mg tablet 10 mg PO DAILY #90 tabs 09/26/23 01/27/24 Rx fluoxetine 20 mg capsule (Prozac) 20 mg PO DAILY #90 caps 12/01/23 01/27/24 Rx albuterol sulfate 90 mcg/actuation 2 puff inhalation Q4-6H PRN 12/26/23 01/27/24 Rx aerosol inhaler shortness of breath or wheezing 30 days #8.5 grams estradiol 1 mg tablet 1 mg PO DAILY #90 tabs 12/31/23 01/27/24 Rx progesterone micronized 100 mg 100 mg PO DAILY #90 caps 12/31/23 01/27/24 Rx capsule chlorhexidine gluconate 4 % 1 applic topical DAILY #237 mL 01/09/24 01/27/24 Rx topical liquid (Hibiclens) hydrocodone 5 mg-acetaminophen 325 1 tablet PO Q12H PRN pain #30 tabs 01/16/24 01/27/24 Rx mg tablet Patient hx anesthesia problems: none Family hx anesthesia problems: none Results Review: All pre-operative results and documents have been reviewed as part of the pre-operative evaluation. [facility] Past Medical History Medical History Abnormal vaginal bleeding in postmenopausal patient Allergies (~1999) Anxiety (~1999) Asthma Bilateral carpal tunnel syndrome Chondromalacia, left knee Chondromalacia, right knee GERD (gastroesophageal reflux disease) (~2014) History of vaginal delivery (~2003) Hyperlipidemia Knee pain Left knee DJD Obesity (BMI 30.0-34.9) Otogenic otalgia of right ear Paresthesia of hand, bilateral Patella-femoral syndrome Right knee DJD Upper respiratory infection Surgical History Surgical History History of bunionectomy (~2016) removal of neuroma, 2017 Family History Family History Father Gastric bleeding Peripheral artery disease with complications leading to left above knee amputation (2013) Malignant neoplasm of prostate Grandparent History of bleeding ulcers Social History Social History Social History: Pt states that she drinks 2 cups of coffee daily. Smoking status: Never smoker Second hand tobacco smoke exposure: No Alcohol intake: current Drinks per week: 1 Alcohol use details: drinks wine 1/ Substance use: never Substance use type: does not use Lack of Transportation: No Lack of Food: Never True Current Housing: I Have Housing Concerned About Future Housing: No Difficulty Paying Gas/Electric Bills: No Difficulty Paying for Meds: No Currently Unemployed: No Education: Master's Degree or Higher Difficulty w/ Childcare or Family Care: No Living arrangements: with family Additional living arrangements comments: since 2011; 2013 Occupation/Education: occupation 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
[2024-01-27] MEDS: ceFAZolin 2 GM/D5W 50 ML 2 GM/50 ML BAG IVPB (11:59)
[2024-01-27] MEDS: BUPivacaine HCL 0.5% 10 ML AMP INFILTRATE (12:38)
[2024-01-27] MEDS: LACTATED RINGERS 1,000 ML 30 ML IV CONT (12:43)
--- NOTE | 2024-01-27 12:50 | W.PM.PROC2 ---
Procedure Note - Detailed Date of Procedure 01/27/24 Pre-op Diagnosis Left Carpal Tunnel syndrome Post-op Diagnosis Same Procedure Performed LEFT CTR Surgeon Aldo Graf MD Anesthesia General Description of Procedure THE LEFT UPPER EXTREMITY WAS PREPPED AND DRAPED IN THE STERILE FASHION. THE CARPAL TUNNEL WAS MARKED FROM THE FLEXED RING FINGER. THE TOURNIQUET WAS INFLATED. THE INCISION WAS MADE AT THE MID PALM DOWN THROUGH THE SUBCUTANEOUS TISSUES. THE PALMAR FASCIA WAS IDENTIFIED. AN INCISION WAS MADE THROUGH THE PALMAR FASCIA UNTIL THE CARPAL TUNNEL WAS ENTERED. A MOSQUITO HEMOSTAT WAS USED TO PROTECT THE MEDIAN NERVE WHILE THE INCISION TO THE PALMAR FASCIA WAS COMPLETE PROXIMALLY AND DISTALLY TO THE CARDINAL LINE. NEXT, THE TRANSVERSE CARPAL LIGAMENT WAS IDENTIFIED. A FREER ELEVATOR WAS USED TO SEPARATE THE NERVE FROM THE LIGAMENT. A METZENBAUM SCISSORS WAS THEN USED TO INCISE THE TRANSVERSE CARPAL LIGAMENT UNTIL THERE WAS A COMPLETE RELEASE OF THE CARPAL TUNNEL. THE MEDIAN NERVE WAS INTACT. THE TOURNIQUET WAS DEFLATED. THE BLEEDERS WERE CAUTERIZED. THE WOUND WAS WASHED. THE SKIN WAS APPROXIMATED WITH 4-0 NYLON SUTURE. STERILE DRESSING WAS APPLIED. PATIENT WAS EXTUBATED AND SENT TO THE RECOVERY ROOM. Estimated Blood Loss 5 Complications No immediate complications Condition Stable Disposition PACU
[2024-01-27] MEDS: oxyCODONE HCL (*CRX) 5 MG TAB IR PO (13:54)
[2024-01-27] MEDS: hydrALAZINE HCL 20 MG/ML VIAL 5 MG IV PUSH (14:21)
== END 2024-01-27 14:53 | disposition home or self-care (01) ==
PROVIDERS: PCP Family Medicine; Visit Provider Orthopaedic Surgery
PROC: (CPT 64721; principal; 2024-01-27 12:00)
DX: G56.03 Carpal tunnel syndrome, bilateral upper limbs (principal); J45.909 Unspecified asthma, uncomplicated; E78.5 Hyperlipidemia, unspecified; E66.9 Obesity, unspecified; Z68.36 Body mass index [BMI] 36.0-36.9, adult
CPT/HCPCS: 64721; A9270; J0360; J0690; J1100; J2250; J2405; J2704; J3010; J7120

== ENCOUNTER 2024-02-05 14:50 | Outpatient (CLI) | payer BC, SELFPAY ==
--- NOTE | ~2024-02-05 | MM_ITS ---
EXAMINATION: MM screening bebeto BI w [facility] HISTORY: Screening TECHNIQUE: Craniocaudal and mediolateral oblique 3-D tomosynthesis images were obtained and synthetic 2-D images were generated. CAD analysis was submitted and interpreted. COMPARISON: Comparison to multiple prior studies sequentially, with oldest reviewed study dated 03/2016. BREAST PARENCHYMAL COMPOSITION: Not dense: There are scattered areas of fibroglandular density. FINDINGS: There is no evidence of suspicious mass, calcification, or architectural distortion to sugg est malignancy in either breast. There has been no suspicious interval change. IMPRESSION: 1. No mammographic evidence of malignancy. 2. Recommend routine screening mammography in one year. BI-RADS Category 1: Negative Reviewed, dictated and finalized at location B.
== END 2024-02-05 14:51 | disposition home or self-care (01) ==
PROVIDERS: PCP Family Medicine; Visit Provider Obstetrics & Gynecology
DX: Z12.31 Encounter for screening mammogram for malignant neoplasm of breast (principal)
CPT/HCPCS: 77063; 77067

== ENCOUNTER 2025-01-05 14:19 | Outpatient (CLI) | payer BC, SELFPAY ==
--- NOTE | ~2025-01-05 | US_ITS ---
EXAMINATION: US pelvic complete w TV INDICATION: Postmenopausal bleeding Comparison:09/02/2022 TECHNIQUE: Multiple transabdominal and endovaginal sonographic images of the pelvis performed. FINDINGS: The uterus measures 8.1 x 3.6 x 4.3 cm. There is a nabothian cyst. The endometrial complex measures 4 mm. The right ovary not visualized. Left ovary is unremarkable measuring 3 x 2 x 2.1 cm. There is no free fluid in the pelvis. There are no abnormal masses seen on either side. IMPRESSION: 1. Unremarkable pelvic ultrasound. Reviewed, dictated and finalized at location []
== END 2025-01-05 14:20 | disposition home or self-care (01) ==
LOC: MICIMG 14:20
PROVIDERS: PCP Family Medicine; Visit Provider Nurse Practitioner Obstetrics & Gynecology
DX: N95.0 Postmenopausal bleeding (principal)
CPT/HCPCS: 76830; 76856